=== PATIENT | male | born 1950 | race Two or more races ===

== ENCOUNTER 2023-02-09 13:09 | Inpatient (IN) | payer OTHER ==
[~2023-02-09] VITALS: Ht 172.7 cm; Wt 78.5 kg
[~2023-02-09 13:09] MED LIST: HYDR-4611 PO
[2023-02-09] MEDS ORDERED: SODIUM CHLORIDE 0.9% 1,000 ML IVB ONE (14:15)
[2023-02-09] MEDS ORDERED: ONDANSETRON HCL 4 MG/2 ML VIAL IV ONE (14:15)
[2023-02-09] MEDS ORDERED: MORPHINE SULFATE 4 MG/ML SYR/VIAL IV ONE (14:15)
[2023-02-09 14:57] LABS: Basophils # (auto) 0 10 ^3/uL (0-0.2); Basophils % (auto) 0.4 % (0.0-2.0); Eosinophils # (auto) 0.1 10 ^3/uL (0-0.8); Eosinophils % (auto) 1.5 % (0.0-7.0); Hematocrit 41.5 % (41.0-53.0); Hemoglobin 14.1 g/dL (13.5-17.5); Lymphocytes # (auto) 1.3 10 ^3/uL (0.4-5.4); Lymphocytes % (auto) 20.6 % (10.0-50.0); Mean Corpuscular Hemoglobin 31.3 pg (28.0-32.0); Mean Corpuscular Hgb Conc. 34.1 g/dL (32.0-36.0); Monocytes # (auto) 0.5 10 ^3/uL (0-1.3); Monocytes % (auto) 8.2 % (0.0-12.0); Neutrophils # (auto) 4.3 10 ^3/uL (1.6-8.6); Neutrophils % (auto) 69.3 % (37.0-80.0); Nucleated Red Blood Cells % 0.1 %; Red Blood Cells 4.51 10^6/uL (4.5-5.90); Red Cell Distribution Width 14.4 % (11.8-14.3); White Blood Cell 6.3 10^3/uL (4.4-10.8)
[2023-02-09 15:10] LABS: Urine Bacteria NONE SEEN /hpf (None Seen); Urine Blood TRACE /uL (Negative); Urine Clarity Clear (Clear); Urine Color Yellow (Yellow); Urine Mucus FEW (None Seen); Urine Protein, UAD TRACE (Negative); Urine Specific Gravity 1.024 (1.001-1.035); Urine Urobilinogen Normal (Negative); Urine WBC 1 /hpf (0 - 3); Urine pH 5.5 (5.0-8.0)
[2023-02-09 15:21] LABS: Albumin 3.4 g/dL (3.4-5.0); Calcium 8.5 mg/dL (8.5-10.1); Potassium 3.9 mmol/L (3.5-5.1)
[2023-02-09 15:25] LABS: BUN/Creatinine Ratio 10.7 (10.0-20.0); Bilirubin, Total 0.6 mg/dL (0.2-1.0)
[2023-02-09 15:26] LABS: INR 1.07 (0.9-1.15); Partial Thromboplastin Time 29.4 SEC (24.5-34.5); Prothrombin Time 11.2 sec (9.3-11.8)
[2023-02-09] MEDS ORDERED: PIPERACILLIN-TAZOB 3.375GM 100 ML IV ONE (16:15)
[2023-02-09] MEDS ORDERED: BUPIVACAINE W/ EPINEPH 0.5% INJ 50ML MDV IJ ONE (16:30)
[2023-02-09] MEDS ORDERED: ONDANSETRON HCL 4 MG/2 ML VIAL IV PRN (17:45)
[2023-02-09] MEDS ORDERED: MORPHINE SULFATE INJ 2 MG/ml SYRG IV PRN (17:45)
[2023-02-09] MEDS ORDERED: NITROGLYCERIN 0.4 MG SL TAB SL PRN (17:45)
[2023-02-09] MEDS: SODIUM CHLORIDE 0.9% 1,000 ML IV SCH (18:31)
[2023-02-09 19:35] VITALS: PULSE 61; RESP 8; O2SAT 95
[2023-02-09] MEDS: PIPERACILLIN-TAZOB 3.375GM 100 ML IV SCH (22:31)
[2023-02-10] MEDS: SODIUM CHLORIDE 0.9% 1,000 ML IV SCH ×3 (00:37→20:25)
[2023-02-10] MEDS: PIPERACILLIN-TAZOB 3.375GM 100 ML IV SCH ×3 (04:25→21:50)
[2023-02-10 07:45] VITALS: PULSE 56; RESP 16; O2SAT 94
[2023-02-10] MEDS ORDERED: ENOXAPARIN SOD 40 MG/0.4 ML SYRINGE SC SCH (10:00)
[2023-02-10] MEDS ORDERED: GLYCOPYRROLATE 0.2 MG/ML 1ML VIAL ONE (13:52)
[2023-02-10] MEDS ORDERED: DexAMETHasone SOD PHOS 10MG/1ML VIAL INJ ONE (13:53)
[2023-02-10] MEDS ORDERED: KETOROLAC TROMETH 30 MG/ML 1ML VIAL ONE (13:53)
[2023-02-10] MEDS ORDERED: PROPOFOL 10 MG/ML 20 ML IV ONE ×3 (13:53→14:52)
[2023-02-10] MEDS ORDERED: ONDANSETRON HCL 4 MG/2 ML VIAL ONE (13:53)
[2023-02-10] MEDS ORDERED: ceFAZolin 1GM VL ONE (14:07)
[2023-02-10] MEDS ORDERED: ePHEDrine SULFATE 50 MG/ML AMP ONE (14:16)
[2023-02-10] MEDS ORDERED: LIDOCAINE W/ EPINEPHRINE 1% 20ML VIAL ONE (15:44)
[2023-02-10] MEDS ORDERED: BUPIVACAINE 0.25% INJ 50ML VIAL ONE (15:44)
[2023-02-10 17:12] VITALS: BP 136/65; PULSE 55; RESP 18; TEMP 97.7; O2SAT 96
[2023-02-10 20:00] VITALS: BP 118/64; PULSE 70; PULSE 72; RESP 16; TEMP 98.2; O2SAT 97
[2023-02-10 22:00] VITALS: BP 118/97; PULSE 60; RESP 14; TEMP 98.2; O2SAT 97
[2023-02-11] VITALS (7 sets, daily range): BP systolic 110–133; BP diastolic 62–72; PULSE 51–74; RESP 14–20; TEMP 98–98.2; O2SAT 95–97
[2023-02-11] MEDS: SODIUM CHLORIDE 0.9% 1,000 ML IV SCH ×4 (03:05→23:37)
[2023-02-11] MEDS: PIPERACILLIN-TAZOB 3.375GM 100 ML IV SCH ×4 (04:00→21:32)
[2023-02-11] MEDS: MORPHINE SULFATE INJ 2 MG/ml SYRG IV PRN ×3 (08:36→21:42)
[2023-02-12] MEDS: PIPERACILLIN-TAZOB 3.375GM 100 ML IV SCH ×2 (04:09→09:54)
[2023-02-12] MEDS: MORPHINE SULFATE INJ 2 MG/ml SYRG IV PRN (04:24)
[2023-02-12 04:29] VITALS: BP 102/56; PULSE 58; RESP 18; TEMP 98.6; O2SAT 98
[2023-02-12] MEDS: SODIUM CHLORIDE 0.9% 1,000 ML IV SCH ×2 (05:13→12:25)
[2023-02-12 08:00] VITALS: PULSE 64; PULSE 88; RESP 18; O2SAT 97
[2023-02-12 09:00] VITALS: BP 125/60; PULSE 54; RESP 16; TEMP 98.6; O2SAT 95
[2023-02-12] MEDS ORDERED: LACTULOSE 20Gm/30ML SOLN PO ONE (12:00)
[2023-02-12 13:00] VITALS: BP 109/66; PULSE 65; RESP 19; TEMP 98.3; O2SAT 100
[2023-02-12 15:05] VITALS: BP 139/81; PULSE 73; RESP 18; TEMP 98.2; O2SAT 97
[2023-02-12] MEDS ORDERED: LACTULOSE 20Gm/30ML SOLN PO SCH (22:00)
== END 2023-02-12 16:00 | disposition home or self-care (01) | DRG 351 ==
LOC: ER 13:09 → TELE 17:47 → TELE-WESTW 02-10 16:39
PROVIDERS: ADMIT Internal Medicine; ATTEND Internal Medicine
PROC: 0YQ50ZZ Repair Right Inguinal Region, Open Approach (ICD-10-PCS; principal; 2023-02-10 13:48)
DX: K40.31 Unilateral inguinal hernia, with obstruction, without gangrene, recurrent (principal); K35.80 Unspecified acute appendicitis
CPT/HCPCS: 36415; 74177; 80053; 81001; 82565; 83690; 85025; 85610; 85730; 86850; 86900; 86901; 88302; 96361; 96365; 96375; C1781; G0378; J0690; J1100; J1885; J2405; J2543; J2704; J3490